=== PATIENT | male | born 1980 | race Two or more races ===

== ENCOUNTER 2017-07-12 11:29 | Inpatient (IN) | payer SELFPAY ==
[~2017-07-12] VITALS: Ht 185.4 cm; Wt 153.6 kg
[2017-07-12 14:25] LABS: Basophils # (auto) 0.1 uL; Basophils % (auto) 0.4 % (0.0-2.0); Eosinophils # (auto) 0 uL; Eosinophils % (auto) 0.1 % (0.0-7.0); Hematocrit 44.1 % (41.0-53.0); Hemoglobin 14.7 g/dL (13.5-17.5); Lymphocytes # (auto) 1.1 uL; Lymphocytes % (auto) 5.9 % (10.0-50.0); Mean Corpuscular Hemoglobin 27.8 pg (28.0-32.0); Mean Corpuscular Hgb Conc. 33.2 g/dL (32.0-36.0); Mean Corpuscular Volume 83.7 fL (80.0-100.0); Mean Platelet Volume 8.7 fL (6.9-10.8); Monocytes # (auto) 1.4 uL; Monocytes % (auto) 7.7 % (0.0-12.0); Neutrophils # (auto) 15.5 uL; Neutrophils % (auto) 85.9 % (37.0-80.0); Nucleated Red Blood Cells % 0.1 %; Platelet Count (auto) 322 10^3/uL (140-450); Red Cell Distribution Width 13.2 % (11.8-14.3)
[2017-07-12 14:49] LABS: BUN/Creatinine Ratio 11.1; Bilirubin, Total 0.7 mg/dL (0.2-1.0); Calcium 9.4 mg/dL (8.5-10.1); Potassium 4.2 mmol/L (3.5-5.1); Total Protein 8.8 g/dL (6.4-8.2)
[2017-07-12] MEDS ORDERED: SODIUM CHLORIDE 0.9% 1,000 ML IVB ONE (16:58)
[2017-07-12] MEDS ORDERED: SODIUM CHLORIDE 0.9% 1,000 ML IV ONE (17:00)
[2017-07-12] MEDS ORDERED: PROMETHAZINE HCL 25 MG/ML 1ML IV ONE (17:00)
[2017-07-12] MEDS ORDERED: NALBUPHINE HCL 10 MG/1ml INJECTION IV ONE (17:00)
[2017-07-12 17:17] LABS: Magnesium 2.3 mg/dL (1.6-2.6)
[2017-07-12] MEDS ORDERED: PROMETHAZINE HCL 25 MG/ML 1ML IV PRN (18:15)
[2017-07-12] MEDS ORDERED: cefTRIAXone 1GM/50ML D5W 50 ML IV ONE (18:15)
[2017-07-12] MEDS ORDERED: LORazepam 2MG/ML-1ML VIAL IV PRN (18:15)
[2017-07-12] MEDS ORDERED: DEXTROSE (50%) 50ML SYRG IV PRN (18:15)
[2017-07-12] MEDS ORDERED: MORPHINE SULF INJ 2 MG/ML SYRINGE 1ML IV PRN (18:15)
[2017-07-12] MEDS ORDERED: HYDROmorphone HCL 2 MG/ML VL IV PRN (18:15)
[2017-07-12] MEDS ORDERED: NITROGLYCERIN 0.4 MG SL TAB SL PRN (18:15)
[2017-07-12] MEDS: SODIUM CHLORIDE 0.9% 1,000 ML IV SCH (18:41)
[2017-07-12] MEDS ORDERED: ENOXAPARIN SOD 40 MG/0.4 ML SYRINGE SC ONE (18:45)
[2017-07-12] MEDS: FAMOTIDINE (10MG/ML) 2ML VL IV SCH (18:49)
[2017-07-12] MEDS ORDERED: metroNIDAZOLE 500MG/100ML 100 ML IV ONE (19:15)
[2017-07-12 21:30] VITALS: BP 155/79
[2017-07-12] MEDS: HYDROmorphone HCL 2 MG/ML VL IV PRN (21:30)
[2017-07-12 22:00] VITALS: BP 155/79
[2017-07-12 22:27] LABS: Urine Bilirubin Negative (Negative); Urine Blood Negative /uL (Negative); Urine Color Yellow (Yellow); Urine Glucose Normal (Normal); Urine Ketone Negative (Negative); Urine Nitrite Negative (Negative); Urine RBC <1 /hpf (0 - 3); Urine Squamous Epithelial Cell FEW /hpf (<5); Urine Urobilinogen Normal (Negative)
[2017-07-12] MEDS ORDERED: ACETAMINOPHEN 325 MG TAB PO PRN (22:45)
[2017-07-12] MEDS: metroNIDAZOLE 500MG/100ML 100 ML IV SCH (23:29)
[2017-07-12] MEDS: ACETAMINOPHEN 325 MG TAB PO PRN (23:30)
[2017-07-12] MEDS: ACCU-CHEK COMFORT CURVE STRIP VI SCH (23:53)
[2017-07-13] MEDS: SODIUM CHLORIDE 0.9% 1,000 ML IV SCH ×2 (04:43→15:58)
[2017-07-13] MEDS: HYDROmorphone HCL 2 MG/ML VL IV PRN ×2 (04:43→08:53)
[2017-07-13 05:00] VITALS: BP 133/72
[2017-07-13] MEDS: ACETAMINOPHEN 325 MG TAB PO PRN (05:34)
[2017-07-13] MEDS: ACCU-CHEK COMFORT CURVE STRIP VI SCH ×4 (05:54→23:35)
[2017-07-13] MEDS: FAMOTIDINE (10MG/ML) 2ML VL IV SCH ×2 (05:54→17:45)
[2017-07-13] MEDS: metroNIDAZOLE 500MG/100ML 100 ML IV SCH ×4 (05:54→23:35)
[2017-07-13] MEDS ORDERED: diphenhdrAMINE HCL 25 MG CAP PO ONE (06:30)
[2017-07-13 07:11] LABS: Basophils # (auto) 0 uL; Basophils % (auto) 0.1 % (0.0-2.0); Eosinophils # (auto) 0 uL; Hematocrit 41.1 % (41.0-53.0); Hemoglobin 13.5 g/dL (13.5-17.5); Lymphocytes # (auto) 0.9 uL; Lymphocytes % (auto) 4.6 % (10.0-50.0); Mean Corpuscular Hemoglobin 27.6 pg (28.0-32.0); Mean Corpuscular Hgb Conc. 32.9 g/dL (32.0-36.0); Mean Platelet Volume 9.3 fL (6.9-10.8); Monocytes # (auto) 2.9 uL; Neutrophils # (auto) 16.7 uL; Neutrophils % (auto) 81.3 % (37.0-80.0); Platelet Count (auto) 260 10^3/uL (140-450); Red Cell Distribution Width 13.3 % (11.8-14.3); White Blood Cell 20.5 10^3/uL (4.4-10.8)
[2017-07-13 07:16] LABS: Potassium 3.9 mmol/L (3.5-5.1)
[2017-07-13 07:22] LABS: Albumin 3.2 g/dL (3.4-5.0); BUN/Creatinine Ratio 14.1; Calcium 8.9 mg/dL (8.5-10.1)
[2017-07-13 07:24] LABS: Bilirubin, Total 1.1 mg/dL (0.2-1.0); Total Protein 7.7 g/dL (6.4-8.2)
[2017-07-13] MEDS: cefTRIAXone 1GM/50ML D5W 50 ML IV SCH (08:53)
[2017-07-13 09:00] VITALS: BP 142/78
[2017-07-13] MEDS: ENOXAPARIN SOD 40 MG/0.4 ML SYRINGE SC SCH (10:20)
[2017-07-13 11:27] LABS: INR 1.13 (0.9-1.15); Partial Thromboplastin Time 29.3 sec (22.64-33.71); Prothrombin Time 12.3 sec (9.37-12.3)
[2017-07-13] MEDS ORDERED: fentaNYL CITRATE 100 MCG/2 ML VL ONE (12:12)
[2017-07-13] MEDS ORDERED: MIDAZOLAM HCL 1MG/1ML-2 ML VIAL ONE (12:12)
[2017-07-13] MEDS ORDERED: SUCCINYLCHOLINE CHLORIDE 20 MG/ML 10ML VIAL IV ONE (12:12)
[2017-07-13] MEDS ORDERED: MEPERIDINE HCL (50 MG/ML) 1 ML VIAL ONE (12:12)
[2017-07-13] MEDS ORDERED: DEXAMETHASONE SOD PHOS 10MG/1ML VIAL INJ ONE (12:17)
[2017-07-13] MEDS ORDERED: KETOROLAC TROMETH 60MG/2ML VIAL IM ONE (13:16)
[2017-07-13] MEDS ORDERED: PROPOFOL 10 MG/ML 20 ML IV ONE (13:16)
[2017-07-13] MEDS ORDERED: GLYCOPYRROLATE 0.2 MG/ML 1ML VIAL ONE (13:20)
[2017-07-13] MEDS ORDERED: NEOSTIGMINE 1 MG/ML INJ (10mg/10ML VIAL) ONE (13:20)
[2017-07-13] MEDS ORDERED: KETOROLAC TROMETH 30 MG/ML 1ML VIAL IV ONE (14:15)
[2017-07-13] MEDS ORDERED: MIDAZOLAM HCL 1MG/1ML-2 ML VIAL IV PRN (14:15)
[2017-07-13] MEDS ORDERED: hydrALAZINE HCL 20 MG/ML VL IV PRN (14:15)
[2017-07-13] MEDS ORDERED: HYDROmorphone HCL 2 MG/ML VL IV PRN (14:15)
[2017-07-13] MEDS ORDERED: MORPHINE SULF INJ 2 MG/ML SYRINGE 1ML IV PRN (14:15)
[2017-07-13] MEDS ORDERED: ePHEDrine SULFATE 50 MG/ML AMP IV PRN (14:15)
[2017-07-13] MEDS ORDERED: ACCU-CHEK COMFORT CURVE STRIP VI ONE (14:15)
[2017-07-13] MEDS ORDERED: ONDANSETRON HCL 4 MG/2 ML VIAL IV ONE (14:15)
[2017-07-13] MEDS ORDERED: LABETALOL HCL 5 MG/ML 4ML SYRINGE IV PRN (14:15)
[2017-07-13] MEDS ORDERED: DICY20TA66 PO (15:24)
[2017-07-13] MEDS ORDERED: OMEP20CA74 PO (15:24)
[2017-07-13] MEDS ORDERED: VERA1TAB9 PO (15:24)
[2017-07-13] MEDS ORDERED: TRAM50TA2 PO (15:24)
[2017-07-13 17:00] VITALS: BP 129/84
[2017-07-13 20:00] VITALS: BP 125/81
[2017-07-13 21:31] VITALS: BP 125/81
[2017-07-14] VITALS (7 sets, daily range): BP systolic 113–145; BP diastolic 72–94
[2017-07-14] MEDS: SODIUM CHLORIDE 0.9% 1,000 ML IV SCH ×3 (01:15→20:30)
[2017-07-14] MEDS: ACCU-CHEK COMFORT CURVE STRIP VI SCH (06:10)
[2017-07-14] MEDS: FAMOTIDINE (10MG/ML) 2ML VL IV SCH ×2 (06:10→17:40)
[2017-07-14] MEDS: metroNIDAZOLE 500MG/100ML 100 ML IV SCH ×3 (06:14→17:40)
[2017-07-14] MEDS: cefTRIAXone 1GM/50ML D5W 50 ML IV SCH (09:10)
[2017-07-14] MEDS: ENOXAPARIN SOD 40 MG/0.4 ML SYRINGE SC SCH (10:00)
[2017-07-14 10:27] LABS: Basophils # (auto) 0 uL; Basophils % (auto) 0.2 % (0.0-2.0); Eosinophils # (auto) 0 uL; Hematocrit 36.7 % (41.0-53.0); Hemoglobin 11.9 g/dL (13.5-17.5); Lymphocytes % (auto) 7.2 % (10.0-50.0); Mean Corpuscular Hemoglobin 27.6 pg (28.0-32.0); Mean Corpuscular Hgb Conc. 32.6 g/dL (32.0-36.0); Mean Corpuscular Volume 84.8 fL (80.0-100.0); Mean Platelet Volume 9.7 fL (6.9-10.8); Monocytes # (auto) 1.4 uL; Monocytes % (auto) 9.5 % (0.0-12.0); Neutrophils % (auto) 83.1 % (37.0-80.0); Platelet Count (auto) 243 10^3/uL (140-450); Red Cell Distribution Width 13.1 % (11.8-14.3); White Blood Cell 14.5 10^3/uL (4.4-10.8)
[2017-07-14] MEDS ORDERED: INFLUENZA QUAD 2017-2018 0.5 ML SYRG IM ONE (18:15)
[2017-07-15] MEDS: metroNIDAZOLE 500MG/100ML 100 ML IV SCH ×3 (00:01→12:00)
[2017-07-15 05:00] VITALS: BP 125/79
[2017-07-15] MEDS: FAMOTIDINE (10MG/ML) 2ML VL IV SCH (06:09)
[2017-07-15] MEDS: SODIUM CHLORIDE 0.9% 1,000 ML IV SCH (06:09)
[2017-07-15 08:00] VITALS: BP 136/79
[2017-07-15 09:00] VITALS: BP 136/79
[2017-07-15] MEDS: ENOXAPARIN SOD 40 MG/0.4 ML SYRINGE SC SCH (09:21)
[2017-07-15] MEDS: cefTRIAXone 1GM/50ML D5W 50 ML IV SCH (09:21)
[2017-07-15 12:09] VITALS: BP 136/79
== END 2017-07-15 13:05 | disposition home or self-care (01) | DRG 418 ==
LOC: ER 11:29 → TELE 11:30 → TELE-EAST 21:15
PROVIDERS: ADMIT Internal Medicine; ATTEND Internal Medicine
PROC: 0FT44ZZ Resection of Gallbladder, Percutaneous Endoscopic Approach (ICD-10-PCS; principal; 2017-07-13 12:42)
DX: K80.12 Calculus of gallbladder with acute and chronic cholecystitis without obstruction (principal); Z68.41 Body mass index [BMI] 40.0-44.9, adult; E66.01 Morbid (severe) obesity due to excess calories; I10 Essential (primary) hypertension; R73.9 Hyperglycemia, unspecified; Z82.49 Family history of ischemic heart disease and other diseases of the circulatory system
CPT/HCPCS: 36415; 71020; 74176; 76705; 80053; 81001; 82150; 82247; 82962; 83036; 83690; 83735; 85025; 85610; 85730; 86850; 86900; 86901; 87040; 87070; 87075; 87205; 96361; 96365; 96368; 96372; 96375; J0330; J0696; J1100; J1885; J2250; J2704; J3490